=== PATIENT | male | born 1965 | race Caucasian/White ===

== ENCOUNTER 2018-08-18 07:48 | Inpatient (IN) | payer OTHER ==
[2018-08-18] MEDS ORDERED: Sodium Chloride 0.9% 1,000 ML IV ONE ×3 (08:07→11:54)
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
--- NOTE | 2018-08-18 09:27 | Diagnostic Imaging Report ---
Head CT without intravenous contrast Indication: Episode of slurred speech Comparison: None Technique: Axial images were obtained from the vertex to the skull base without IV contrast. Coronal reconstructions were made. Total DLP: 611, CTDI35.3 FINDINGS: Images of the brain obtained without contrast demonstrate no acute hemorrhage. No mass lesions identified. The ventricles and basal cisterns are patent. The nina-white matter differentiation is preserved. There is no mass effect or midline shift. No skull fractures identified. No soft tissue swelling. The paranasal sinuses are clear. IMPRESSION: No acute intracranial abnormality.
[2018-08-18 09:42] LABS: % BASOPHILS 0.4 % (0.0-2.0); % MONOCYTES 9.5 % (2.0-10.0); % NEUTROPHILS 76.1 % (40.0-80.0); BASOPHILE ABSOLUTE 0.1 Th/cumm (0-0.2); EOSINOPHILE ABSOLUTE 0.1 Th/cmm (0.1-0.4); HEMATOCRIT 42.1 % (41.0-60); HEMOGLOBIN 14.3 gm/dL (12-16); LYMPHOCYTE ABSOLUTE 1.7 Th/cmm (1.5-3.0); MEAN CELL VOLUME 92.6 fl (80-99); MEAN CORPUSCULAR HEMOGLOBIN 31.5 pg (26.0-30.0); MONOCYTE ABSOLUTE 1.3 Th/cmm (0.3-1.0); NEUTROPHILE ABSOLUTE 10.1 Th/cmm (1.8-8.0); PLATELET COUNT 344 Th/cmm (150-400); RED BLOOD COUNT 4.55 Mil/cmm (4.30-5.70); RED CELL DISTRIBUTION WIDTH 12.4 % (11.5-20.0); WHITE BLOOD COUNT 13.3 Th/cmm (4.8-10.8)
[2018-08-18 09:52] LABS: ANION GAP 22.8 (7.0-16.0); CALCIUM SERUM 9.8 mg/dL (8.6-10.3); CARBON DIOXIDE 19.9 mEq/L (21.0-31.0); GFR AFRICAN-AMERICAN 8.2 ml/min (>90); GFR NON AFRICAN-AMERICAN 6.8 ml/min; MAGNESIUM 2.5 mg/dL (1.9-2.7); POTASSIUM SERUM 4.7 mEq/L (3.5-5.1)
[2018-08-18 10:01] LABS: CREATININE - SERUM 8.7 mg/dL (0.7-1.3)
[2018-08-18 10:42] LABS: URINE SOURCE RANDOM
--- NOTE | 2018-08-18 10:51 | Diagnostic Imaging Report ---
CHEST X-RAY: AP view INDICATION: Cerebrovascular accident COMPARISON: None FINDINGS: There is no focal consolidation or pleural effusions The heart is normal in size. The osseous structures demonstrate no acute abnormalities. IMPRESSION: No focal airspace consolidation identified.
[2018-08-18 11:00] LABS: URINE BILIRUBIN NEGATIVE (NEGATIVE); URINE BLOOD SMALL (NEGATIVE); URINE GLUCOSE (UA) NEGATIVE (NEGATIVE); URINE KETONE NEGATIVE (NEGATIVE); URINE LEUKOCYTE ESTERASE NEGATIVE (NEGATIVE); URINE MICROSCOPIC INDICATED? YES; URINE NITRATE NEGATIVE (NEGATIVE); URINE PH 5.5 (4.6 - 8.0); URINE PROTEIN 30 mg/dL (NEGATIVE); URINE UROBILINOGEN 0.2 E.U./dL (0.2 - 1.0)
[2018-08-18 11:13] LABS: URINE CLARITY SLIGHTLY HAZY (CLEAR); URINE COLOR YELLOW
[2018-08-18 11:27] LABS: URINE BACTERIA FEW /hpf (NONE SEEN); URINE COARSE GRANULAR CAST 0-2 /lpf (NONE SEEN); URINE EPITHELIAL CELLS FEW /lpf (FEW)
[2018-08-18 11:28] LABS: URINE AMORPHOUS SEDIMENT FEW URATES (NONE SEEN); URINE SPERM FEW /hpf (NONE SEEN)
[2018-08-18] MEDS ORDERED: Morphine Sulfate 4 mg/mL 1mL Syr IVP STA (12:04)
[2018-08-18] MEDS ORDERED: Morphine Sulfate 4 mg/mL 1mL Syr ONE (12:07)
--- NOTE | 2018-08-18 12:34 | Diagnostic Imaging Report ---
CT abdomen and pelvis without intravenous contrast Indication: Acute renal failure Comparison: None, Technique: Axial images were obtained from the lung bases to the bilateral proximal femurs without IV contrast. Coronal reconstructions were made. total DLP: 476, CTDI10.3 FINDINGS: Hypoventilatory and atelectatic changes of the lung bases are noted. Assessment of the solid organs is limited due to lack of IV contrast. No evidence of focal hepatic, splenic, or pancreatic lesions. No focal adrenal lesions. No evidence of hydronephrosis or focal renal lesions. Distended urinary bladder is noted. Diverticulosis is noted. Moderate stool is seen throughout the colon. Appendix is not well-visualized. Fluid-filled small bowel are seen with areas of mild small bowel wall thickening along the right lower quadrant minimal haziness of the regional fat planes in this region. No free fluid or free air. There is a small fat-containing right inguinal hernia. Mild atherosclerosis is noted. Degenerative changes of the spine are noted. There is a large posterior disc osteophyte complex at L5/S1 measuring 7 mm causing at least moderate spinal canal and moderate to severe bilateral neural foraminal narrowing. Vacuum phenomena is also noted at L4/L5. IMPRESSION: No evidence of hydronephrosis or renal stones. Distended urinary bladder. Suggestion of mild bowel wall thickening and minimal haziness involving the right lower quadrant fat planes probably due to underlying infectious inflammatory process/enteritis. Appendix was not clearly visualized. Please correlate clinically. Diverticulosis without diverticulitis Moderate stool. Advanced degenerative changes of the lower lumbar spine with large disc osteophyte complex at L5/S1 measuring 7 mm. Mild atherosclerosis. Small fat-containing right inguinal hernia.
[2018-08-18] MEDS: Sodium Chloride 0.9% 1,000 ML IV SCH ×2 (13:30→20:18)
[2018-08-18] MEDS: cefTRIAXone 1 GM in Sodium Chloride 0.9% 50 ML IV SCH (14:30)
--- NOTE | 2018-08-18 16:29 | Consultation ---
Consult Note - Consult Note Service Date: 08/18/18 Referring Physician: Jovon Pierce Consult Note: PHYSICIAN Consultation Note: Date of Admission: 08/18/18 Purpose of Consultation: Chief Complaint: Patient LAURENT KNIGHT was admitted to location Intensive Care Unit with ACUTE RENAL FAILURE. History of Present Illness: 52 y/m with history of HTN developed nausea, vomiting associated with dizziness , for last 2 days. He stated that he had not urinated well for last 2 days. He vomited 4-52 days ago and twice yesterday. He stated that dizziness worse when he stands: sees black spots and has sensation of impending syncope. This morning patient had developed slurred speech for 2 hours and it had improved. Left arm felt tingling and numb for about one hour this morning. CT scan of head was non-contributory. On initial evaluation, his temperature was 97.6F and WBC Count was 13,300. Blood pressure yesterday was 170/70 and 113/40 this morning. His creatine was 8.7. CXR was neg for any active disease. Urinalysis showed mild hematuria and bacteriuria,. ID consult was called for leukocytosis. He stated that he was in sun working for few hours and felt weak. had nausea and vomiting on last three days ago. he went back and took some rest. His condition got worse and ultimately stopped urinating with worsening of the symptoms. He had similar episode in the past. Past Medical History: renal failure and gets dehydrated: occurred 7-8 years ago. Allergies Allergy/AdvReac Type Severity Reaction Status Date / Time No Known Allergies Allergy Verified 08/18/18 07:56 Vital Signs Temp 97.7 F 08/18/18 13:06 Pulse 88 08/18/18 13:06 Resp 20 08/18/18 13:06 BP 96/56 08/18/18 13:06 Pulse Ox 97 08/18/18 13:06 Intake & Output 08/17/18 08/18/18 08/18/18 18:59 06:59 18:59 Intake Total 6000 Output Total 200 Balance 5800 Weight (lbs) 78.018 kg Intake: Intake, IV Amount 6000 Output: Urine 200 Other: Weight Source Patient stated Laboratory Results - last 24 hr 08/18/18 08/18/18 08/18/18 08:45 08:45 08:45 WBC 13.3 H RBC 4.55 Hgb 14.3 Hct 42.1 MCV 92.6 MCH 31.5 H MCHC Differential 34.0 RDW 12.4 Plt Count 344 MPV 7.8 Neutrophils % 76.1 Lymphocytes % 13.0 L Monocytes % 9.5 Eosinophils % 1.0 Basophils % 0.4 Sodium 133 L Potassium 4.7 Chloride 95 L Carbon Dioxide 19.9 L Anion Gap 22.8 H BUN 71 H Creatinine 8.7 H* Est GFR ( Amer) 8.2 Est GFR (Non-Af Amer) 6.8 BUN/Creatinine Ratio 8.2 Glucose 89 Calcium 9.8 Magnesium 2.5 Troponin I 0.01 Urine Source Urine Color Urine Clarity Urine pH Ur Specific [place] Urine Protein Urine Glucose (UA) Urine Ketones Urine Blood Urine Nitrate Urine Bilirubin Urine Urobilinogen Ur Leukocyte Esterase Urine RBC Urine WBC Ur Epithelial Cells Amorphous Sediment Urine Bacteria Coarse Granular Casts Urine Sperm 08/18/18 08/18/18 09:01 10:22 WBC RBC Hgb Hct MCV MCH MCHC Differential RDW Plt Count MPV Neutrophils % Lymphocytes % Monocytes % Eosinophils % Basophils % Sodium Potassium Chloride Carbon Dioxide Anion Gap BUN Creatinine Est GFR ( Amer) Est GFR (Non-Af Amer) BUN/Creatinine Ratio Glucose Calcium Magnesium 2.6 Troponin I Urine Source RANDOM Urine Color YELLOW Urine Clarity SLIGHTLY HAZY Urine pH 5.5 Ur Specific [place] 1.015 Urine Protein 30 H Urine Glucose (UA) NEGATIVE Urine Ketones NEGATIVE Urine Blood SMALL H Urine Nitrate NEGATIVE Urine Bilirubin NEGATIVE Urine Urobilinogen 0.2 Ur Leukocyte Esterase NEGATIVE Urine RBC 2-5 H Urine WBC 2-5 Ur Epithelial Cells FEW Amorphous Sediment FEW URATES Urine Bacteria FEW Coarse Granular Casts 0-2 H Urine Sperm FEW Home Medication Medication Instructions Recorded Type Lisinopril 20 mg PO BID 08/18/18 History Metoprolol Succinate [Toprol Xl] 50 mg PO DAILY 08/18/18 History Current Medications Generic Name Dose Route Start Last Admin Trade Name Freq PRN Reason Stop Dose Admin Ceftriaxone Sodium 1 gm/ 50 mls @ 100 mls/hr 08/18/18 14:00 Sodium Chloride IV 10/17/18 13:59 Q24HR PUNEET Sodium Chloride 1,000 mls @ 150 mls/hr 08/18/18 13:15 Nacl 0.9% IV 10/17/18 13:14 .Q6H40M PUNEET Review of Systems: A 12 point ROS was reviewed with the pertinent positive and negatives noted in the HPI. Social History Smoking Status Never smoker Drug Use No Alcohol Use No Family Medical History Family Medical History Mother Age 83 Ethnicity Non- Living Status Still Living Hx Family Hypertension Yes Physical Exam: General: Comfortable, not in any acute distress. lean and thin male. HEENT: HEAD: NC NT. ORAL CAVUITY: Moist, pink tongue, pupil PERRLA, EOMI. Neck: Supple, no JVD, no carotid bruit. Cardio: S1 and S2 WNL. pansystolic murmur 9 intense on the apez, PMI, at 5th IC space, medial to midclavicular line), no gallop. Respiratory: Vesicuklar breath sounds, no crackles, no wheezing. Abdominal: Soft, NT, ND BS present. no hepatomegaly. Genital/Urinary: deferred Extremities: NCCE Neurological: AAOx3. Assessment: 1. Leukocytosis, likely reactive. 2/2 CARLITOS, cannot rule out sepsis. 2. UTI, mild. 3. CARLITOS. 4. HTN. 5. Systolic murmur Plan: Will continue rocephin. Follow up sepsis w/u. Hold lisinopril. 2 D Echo. IVF support. thank you Dr Pierce for invovling me in taking care of this patient. Scottie, Tate Rocha M.D. [id number]
[2018-08-18 21:23] LABS: URINE SOURCE MIDSTREAM
[2018-08-18 21:28] LABS: URINE BILIRUBIN NEGATIVE (NEGATIVE); URINE BLOOD SMALL (NEGATIVE); URINE GLUCOSE (UA) NEGATIVE (NEGATIVE); URINE KETONE NEGATIVE (NEGATIVE); URINE LEUKOCYTE ESTERASE NEGATIVE (NEGATIVE); URINE MICROSCOPIC INDICATED? YES; URINE NITRATE NEGATIVE (NEGATIVE); URINE PH 5.5 (4.6 - 8.0); URINE PROTEIN TRACE mg/dL (NEGATIVE); URINE UROBILINOGEN 0.2 E.U./dL (0.2 - 1.0)
[2018-08-18 21:31] LABS: URINE CLARITY CLEAR (CLEAR); URINE COLOR YELLOW
[2018-08-18 21:34] LABS: URINE RBC NONE SEEN /hpf (0-5)
[2018-08-18 21:35] LABS: URINE BACTERIA NONE SEEN /hpf (NONE SEEN); URINE EPITHELIAL CELLS NONE SEEN /lpf (FEW); URINE WBC NONE SEEN /hpf (0-5)
--- NOTE | 2018-08-19 02:37 | History & Physical ---
ADMIT DATE: 08/18/2018 CHIEF COMPLAINT: Dizziness, nausea and vomiting. HISTORY OF PRESENT ILLNESS: This is a 52-year-old male with underlying history of hypertension, who was evaluated in the Emergency Room for dizziness, nausea, and vomiting for past 2 days. The patient stated that 2 days ago, he was working in the back yard. He is a senior technical project manager. The patient stated that he experienced a severe heat. He kept drinking water, but he felt very nauseous and fatigued, started having vomiting. The patient stated that these symptoms persistently got worse and he started feeling very dizzy, so the patient was brought into the Emergency Room. The patient ____ diagnosed with severe dehydration and acute renal failure with a creatinine of 8.7. The patient told that he had similar issues several years ago and was treated with IV fluids and did not require hemodialysis. The patient stated he also noticed to have a decreased in and out for the past 2 days. He denies any abdominal pain, no headache, no chest pain, no shortness of breath, no fever, no chills or any other complaint reported. PAST MEDICAL HISTORY: Hypertension. PAST SURGICAL HISTORY: None. FAMILY HISTORY: Denies. SOCIAL HISTORY: Denies any alcohol, tobacco, or street drug use. CURRENT MEDICATIONS: Medication list is reviewed. ALLERGIES: Reviewed. REVIEW OF SYSTEMS: As per HPI, a 12-point system is negative. PHYSICAL EXAMINATION: VITAL SIGNS: Temperature 98.2, pulse 65, respiration 18, blood pressure 95/49 and oxygen saturation is 93% on room air. HEENT: Unremarkable. HEART: S1, S2 normal. ABDOMEN: Soft ____. ASSESSMENT: 1. Severe dehydration. 2. Acute renal failure. 3. Leukocytosis, most likely reactive. 4. Chronic low back pain. 5. Hypotension. PLAN: The patient is admitted to ICU. The patient was given aggressive resuscitations. Empiric antibiotics per ID. Nephrology consulted. Tramadol as needed for pain. Home medication reconciled. Currently, the BP meds on hold due to hypotension. Discussed with the patient regarding his condition, plan of care ____ for nausea, vomiting. Follow up labs in the morning. JOB# [id number]
[2018-08-19] MEDS: Sodium Chloride 0.9% 1,000 ML IV SCH ×2 (03:05→18:18)
[2018-08-19 05:52] LABS: % BASOPHILS 0.4 % (0.0-2.0); % EOSINOPHILS 1.5 % (0.0-5.0); % LYMPHOCYTES 13.6 % (20.0-50.0); % MONOCYTES 9.8 % (2.0-10.0); % NEUTROPHILS 74.7 % (40.0-80.0); EOSINOPHILE ABSOLUTE 0.1 Th/cmm (0.1-0.4); HEMATOCRIT 33.6 % (41.0-60); HEMOGLOBIN 11.4 gm/dL (12-16); LYMPHOCYTE ABSOLUTE 1.2 Th/cmm (1.5-3.0); MEAN CELL VOLUME 92.7 fl (80-99); MEAN CORPUSCULAR HEMOGLOBIN 31.5 pg (26.0-30.0); MONOCYTE ABSOLUTE 0.9 Th/cmm (0.3-1.0); NEUTROPHILE ABSOLUTE 6.8 Th/cmm (1.8-8.0); PLATELET COUNT 260 Th/cmm (150-400); RED BLOOD COUNT 3.62 Mil/cmm (4.30-5.70); RED CELL DISTRIBUTION WIDTH 12.3 % (11.5-20.0)
[2018-08-19 06:50] LABS: ANION GAP 7.5 (7.0-16.0); CALCIUM SERUM 8.7 mg/dL (8.6-10.3); CARBON DIOXIDE 25.7 mEq/L (21.0-31.0); CREATININE - SERUM 3.1 mg/dL (0.7-1.3); GFR AFRICAN-AMERICAN 27.1 ml/min (>90); GFR NON AFRICAN-AMERICAN 22.4 ml/min
[2018-08-19 06:53] LABS: POTASSIUM SERUM 6.2 mEq/L (3.5-5.1)
--- NOTE | 2018-08-19 08:57 | Diagnostic Imaging Report ---
Portable chest x-ray History: Cough Allowing for portable technique the heart size is normal. No focal pulmonary parenchymal processes. No hilar or mediastinal abnormalities. Impression: No acute abnormalities.
--- NOTE | 2018-08-19 09:01 | Diagnostic Imaging Report ---
Renal ultrasound HISTORY: Abnormal renal function tests The right kidney is normal in size (9.5 x 5.0 x 5.2 cm). Normal cortical contour and echogenicity. No focal lesions. No hydronephrosis. The left kidney is normal in size (11.0 x 5.5 x 4.8 cm). No focal lesions. No hydronephrosis. No intraluminal abnormality seen within the urinary bladder. Post void residual equals 61.8 mL. IMPRESSION: 1. Negative examination the kidneys 2. Post void urine residual within the urinary bladder equals 61.8 mL.
[2018-08-19] MEDS ORDERED: Dextrose 50% 50 mL Abboject IVP ONE (09:02)
[2018-08-19] MEDS ORDERED: INSULIN HUMAN REGULAR 100 UNITS/ML UNIT IVP ONE (09:02)
[2018-08-19] MEDS: Albuterol Nebulizer 2.5mg/3mL HHN SCH ×5 (09:48→14:00)
[2018-08-19] MEDS: Calcium Gluconate 1 GM in Sodium Chloride 0.9% 100 ML IV SCH ×2 (10:02→11:55)
[2018-08-19 13:29] LABS: ANION GAP 11.9 (7.0-16.0); CALCIUM SERUM 9.2 mg/dL (8.6-10.3); CARBON DIOXIDE 21.7 mEq/L (21.0-31.0); CREATININE - SERUM 2.8 mg/dL (0.7-1.3); GFR AFRICAN-AMERICAN 30.5 ml/min (>90); GFR NON AFRICAN-AMERICAN 25.2 ml/min; POTASSIUM SERUM 5.6 mEq/L (3.5-5.1)
[2018-08-19 13:30] LABS: MAGNESIUM 1.9 mg/dL (1.9-2.7); PHOSPHOROUS 2.7 mg/dL (2.5-5.0)
[2018-08-19] MEDS ORDERED: Probiotic Screen MC PRN (13:41)
[2018-08-19] MEDS: cefTRIAXone 1 GM in Sodium Chloride 0.9% 50 ML IV SCH (14:12)
--- NOTE | 2018-08-19 15:25 | History & Physical ---
ADMIT DATE: RENAL AND CRITICAL CARE CONSULT LOCATION: [facility], ICU bed #8. Thank you very much, Dr. Pierce, for allowing me to participate in the management of this patient of yours. IDENTIFICATION: This is a 52-year-old male patient who is a known case of well-controlled hypertension, on beta robby and JOHN inhibitor. The patient was working in the backyard for about 2-3 hours in very hot weather. The patient started feeling dizzy, nauseated. He vomited. The patient thought he may have got dehydration since a similar thing happened back in [place] where he was. The patient came to the Emergency Room, was found to have acute kidney injury. The patient stated that he will get better with hydration since this has happened before and his kidney got better with just IV hydration without dialysis. The patient was started on dialysis. The patient has persistent high potassium. Renal consultation has been requested. The patient is conscious and alert at this time. He feels much better. He has no vomiting or diarrhea. Now, the dizziness has subsided. The patient is tolerating food well, although he does not like the food. The patient denies any hematuria, anuria, or chest pain. No prior history of diabetes mellitus, kidney stone as mentioned above, history of hypertension and acute renal failure secondary to dehydration. No history of lupus. SOCIAL HISTORY: No history of alcoholism, smoking or drug use. The patient lives [place]. PAST MEDICAL HISTORY: Hypertension. PHYSICAL EXAMINATION: VITAL SIGNS: Temperature 98.6, pulse 79, respirations 23, blood pressure 123/69. Yesterday's intake 9387, urine output 3250. HEENT: Normocephalic, atraumatic. Eyes, sclerae is nonicteric. Conjunctivae are pink. Pupils are reactive. NECK: Thyroid is nontender, not enlarged. Jugular venous pressure not distended. LUNGS: Good air entry. No rales or rhonchi. HEART: Regular, no rub or gallop. ABDOMEN: Soft, not distended. Bowel sounds present. No organomegaly or bruit. EXTREMITIES: No edema of the legs. No calf tenderness. NEUROLOGICAL: Conscious, alert. No focal deficit. LABORATORY DATA: WBC 13.3, repeat 9.0, hemoglobin 14.3, repeat 11.4. Sodium 133, potassium 4.7, repeat potassium 6.2, chloride 95, CO2 19, BUN 71, creatinine 8.7. Repeat BUN 49, creatinine 3.1, calcium, phosphorus normal. Urinalysis: Small blood, no nitrites, no wbc's, no bacteria, no cast. ASSESSMENT: 1. Acute kidney injury. 2. Volume depletion. 3. History of hypertension. 4. Hyperkalemia, most probably secondary to combination of acute kidney injury and lisinopril. 5. Leukocytosis. PLAN: Continue IV hydration. Hyperkalemia will be treated medically with calcium gluconate, D50, insulin, Atrovent breathing treatment. Repeat a BMP. I am expecting this patient to have a good recovery of his acute kidney injury. Lab will be done again in the morning if potassium is normal and the repeat lab. The patient's renal status seems to be in stable condition for the regular floor. I will follow this patient with you. JOB# [id number]
--- NOTE | 2018-08-19 17:12 | Infectious Disease Prog Note ---
Infectious Disease Subjective - Review of Systems Service Date: 08/19/18 Subjective: There is no new change, no fever, Feeling better. Infectious Disease Objective - Results Result Diagrams: 08/19/18 04:50 08/19/18 12:35 Recent Labs: Laboratory Last Values WBC 9.0 Th/cmm (4.8-10.8) 08/19/18 04:50 RBC 3.62 Mil/cmm (4.30-5.70) L 08/19/18 04:50 Hgb 11.4 gm/dL (12-16) L 08/19/18 04:50 Hct 33.6 % (41.0-60) L D 08/19/18 04:50 MCV 92.7 fl (80-99) 08/19/18 04:50 MCH 31.5 pg (26.0-30.0) H 08/19/18 04:50 MCHC Differential 34.0 pg (28.0-36.0) 08/19/18 04:50 RDW 12.3 % (11.5-20.0) 08/19/18 04:50 Plt Count 260 Th/cmm (150-400) D 08/19/18 04:50 MPV 7.4 fl 08/19/18 04:50 Neutrophils % 74.7 % (40.0-80.0) 08/19/18 04:50 Lymphocytes % 13.6 % (20.0-50.0) L 08/19/18 04:50 Monocytes % 9.8 % (2.0-10.0) 08/19/18 04:50 Eosinophils % 1.5 % (0.0-5.0) 08/19/18 04:50 Basophils % 0.4 % (0.0-2.0) 08/19/18 04:50 Sodium 139 mEq/L (136-145) 08/19/18 12:35 Potassium 5.6 mEq/L (3.5-5.1) H 08/19/18 12:35 Chloride 111 mEq/L (98-107) H 08/19/18 12:35 Carbon Dioxide 21.7 mEq/L (21.0-31.0) 08/19/18 12:35 Anion Gap 11.9 (7.0-16.0) 08/19/18 12:35 BUN 39 mg/dL (7-25) H 08/19/18 12:35 Creatinine 2.8 mg/dL (0.7-1.3) H 08/19/18 12:35 Est GFR ( Amer) 30.5 ml/min (>90) 08/19/18 12:35 Est GFR (Non-Af Amer) 25.2 ml/min 08/19/18 12:35 BUN/Creatinine Ratio 13.9 08/19/18 12:35 Glucose 102 mg/dL (70-105) 08/19/18 12:35 POC Glucose 72 MG/DL (70 - 105) 08/19/18 11:20 Whole Bld Lactic Acid 0.71 mmol/L (0.60-1.99) 08/18/18 17:05 Calcium 9.2 mg/dL (8.6-10.3) 08/19/18 12:35 Phosphorus 2.7 mg/dL (2.5-5.0) 08/19/18 12:35 Magnesium 1.9 mg/dL (1.9-2.7) 08/19/18 12:35 Troponin I 0.01 ng/mL (0.01-0.05) 08/18/18 08:45 TSH 0.13 uIU/ml (0.34-5.60) L 08/19/18 12:35 Urine Source MIDSTREAM 08/18/18 21:15 Urine Color YELLOW 08/18/18 21:15 Urine Clarity CLEAR (CLEAR) 08/18/18 21:15 Urine pH 5.5 (4.6 - 8.0) 08/18/18 21:15 Ur Specific [place] 1.015 (1.005-1.030) 08/18/18 21:15 Urine Protein TRACE mg/dL (NEGATIVE) 08/18/18 21:15 Urine Glucose (UA) NEGATIVE mg/dL (NEGATIVE) 08/18/18 21:15 Urine Ketones NEGATIVE mg/dL (NEGATIVE) 08/18/18 21:15 Urine Blood SMALL (NEGATIVE) H 08/18/18 21:15 Urine Nitrate NEGATIVE (NEGATIVE) 08/18/18 21:15 Urine Bilirubin NEGATIVE (NEGATIVE) 08/18/18 21:15 Urine Urobilinogen 0.2 E.U./dL (0.2 - 1.0) 08/18/18 21:15 Ur Leukocyte Esterase NEGATIVE (NEGATIVE) 08/18/18 21:15 Urine RBC NONE SEEN /hpf (0-5) 08/18/18 21:15 Urine WBC NONE SEEN /hpf (0-5) 08/18/18 21:15 Ur Epithelial Cells NONE SEEN /lpf (FEW) 08/18/18 21:15 Uric Acid Crystals FEW /hpf (NONE SEEN) 08/18/18 21:15 Amorphous Sediment FEW URATES (NONE SEEN) 08/18/18 10:22 Urine Bacteria NONE SEEN /hpf (NONE SEEN) 08/18/18 21:15 Coarse Granular Casts 0-2 /lpf (NONE SEEN) H 08/18/18 10:22 Urine Sperm FEW /hpf (NONE SEEN) 08/18/18 10:22 Ur Random Sodium 100 mmol/L 08/19/18 10:15 Ur Random Potassium 12.0 mmol/L 08/19/18 10:15 - Physical Exam Vitals and I&O: Vital Signs Temp 97.2 F 08/19/18 12:00 Pulse 79 08/19/18 14:00 Resp 23 08/19/18 14:00 BP 123/69 08/19/18 14:00 Pulse Ox 100 08/19/18 14:00 Intake & Output 08/18/18 08/19/18 08/19/18 18:59 06:59 18:59 Intake Total 6550 2837.5 110 Output Total 1250 2000 Balance 5300 837.5 110 Weight (lbs) 78.018 kg 78.018 kg Intake: Intake, IV Amount 6050 2437.5 110 Calcium Gluconate 1 gm In 110 Sodium Chloride 0.9% 100 ml @ 200 mls/hr IV Q2HR [facility] Rx#:[id number] Sodium Chloride 0.9% 1, 2437.5 000 ml @ 150 mls/hr IV . Q6H40M [facility] Rx#:[id number] cefTRIAXone 1 gm In 50 Sodium Chloride 0.9% 50 ml @ 100 mls/hr IV Q24HR [facility] Rx#:[id number] Oral 500 400 Output: Urine 1250 2000 Other: # Bowel Movements 0 Weight Source Patient stated Patient stated Active Medications: Current Medications Ceftriaxone Sodium 1 gm/ (Sodium Chloride) 50 mls @ 100 mls/hr IV Q24HR [facility] Stop: 10/17/18 13:59 Last Admin: 08/19/18 14:12 Dose: 100 mls/hr Sodium Chloride (Nacl 0.9%) 1,000 mls @ 150 mls/hr IV .Q6H40M [facility] Stop: 10/17/18 13:14 Last Infusion: 08/19/18 06:00 Dose: 150 mls/hr Lactobacillus Rhamnosus (Culturelle 15b) 1 each PO DAILY [facility] Stop: 10/19/18 08:59 Miscellaneous (Probiotic Screen) 1 ea MC PRN PRN PRN Reason: PROTOCOL Stop: 10/18/18 13:40 Tramadol HCl (Ultram) 50 mg PO Q6HR PRN PRN Reason: MODERATE PAIN Stop: 10/17/18 18:16 Last Admin: 08/18/18 19:59 Dose: 50 mg Zolpidem Tartrate (Ambien) 5 mg PO HS PRN PRN Reason: Insomnia Stop: 10/17/18 23:17 Last Admin: 08/18/18 23:31 Dose: 5 mg General: no acute distress, well developed, well nourished HEENT: atraumatic, normocephalic, PERRLA, EOMI Neck: supple, no thyromegaly Cardiovascular: S1S2, regular Lungs: clear to auscultation bilaterally, clear to percussion Abdomen: soft, no tender, no distended Extremities: no cyanosis, no clubbing Neurological: awake, alert, oriented Skin: intact Infectious Disease Assmt/Plan - Problem List Patient Problems: All Active Problems SLURRED SPEECH WITH DIZZINESS (Acute) - Assessment Assessment: 1. Leukocytosis, likely reactive. 2/2 CARLITOS, cannot rule out sepsis. 2. UTI, mild. 3. CARLITOS. 4. HTN. 5. Systolic murmur - Plan Plan: Continue the same treatment.
[2018-08-19 19:54] VITALS: BP 125/68
--- NOTE | 2018-08-19 22:22 | General Progress Note ---
Subjective - Review of Systems Service Date: 08/19/18 Subjective: Patient seen and examined feels better denied any complaints Objective - Results Result Diagrams: 08/19/18 04:50 08/19/18 18:00 Recent Labs: Laboratory Last Values WBC 9.0 Th/cmm (4.8-10.8) 08/19/18 04:50 RBC 3.62 Mil/cmm (4.30-5.70) L 08/19/18 04:50 Hgb 11.4 gm/dL (12-16) L 08/19/18 04:50 Hct 33.6 % (41.0-60) L D 08/19/18 04:50 MCV 92.7 fl (80-99) 08/19/18 04:50 MCH 31.5 pg (26.0-30.0) H 08/19/18 04:50 MCHC Differential 34.0 pg (28.0-36.0) 08/19/18 04:50 RDW 12.3 % (11.5-20.0) 08/19/18 04:50 Plt Count 260 Th/cmm (150-400) D 08/19/18 04:50 MPV 7.4 fl 08/19/18 04:50 Neutrophils % 74.7 % (40.0-80.0) 08/19/18 04:50 Lymphocytes % 13.6 % (20.0-50.0) L 08/19/18 04:50 Monocytes % 9.8 % (2.0-10.0) 08/19/18 04:50 Eosinophils % 1.5 % (0.0-5.0) 08/19/18 04:50 Basophils % 0.4 % (0.0-2.0) 08/19/18 04:50 Sodium 139 mEq/L (136-145) 08/19/18 12:35 Potassium 4.9 mEq/L (3.5-5.1) 08/19/18 18:00 Chloride 111 mEq/L (98-107) H 08/19/18 12:35 Carbon Dioxide 21.7 mEq/L (21.0-31.0) 08/19/18 12:35 Anion Gap 11.9 (7.0-16.0) 08/19/18 12:35 BUN 39 mg/dL (7-25) H 08/19/18 12:35 Creatinine 2.8 mg/dL (0.7-1.3) H 08/19/18 12:35 Est GFR ( Amer) 30.5 ml/min (>90) 08/19/18 12:35 Est GFR (Non-Af Amer) 25.2 ml/min 08/19/18 12:35 BUN/Creatinine Ratio 13.9 08/19/18 12:35 Glucose 102 mg/dL (70-105) 08/19/18 12:35 POC Glucose 72 MG/DL (70 - 105) 08/19/18 11:20 Whole Bld Lactic Acid 0.71 mmol/L (0.60-1.99) 08/18/18 17:05 Calcium 9.2 mg/dL (8.6-10.3) 08/19/18 12:35 Phosphorus 2.7 mg/dL (2.5-5.0) 08/19/18 12:35 Magnesium 1.9 mg/dL (1.9-2.7) 08/19/18 12:35 Troponin I 0.01 ng/mL (0.01-0.05) 08/18/18 08:45 TSH 0.13 uIU/ml (0.34-5.60) L 08/19/18 12:35 Urine Source MIDSTREAM 08/18/18 21:15 Urine Color YELLOW 08/18/18 21:15 Urine Clarity CLEAR (CLEAR) 08/18/18 21:15 Urine pH 5.5 (4.6 - 8.0) 08/18/18 21:15 Ur Specific [place] 1.015 (1.005-1.030) 08/18/18 21:15 Urine Protein TRACE mg/dL (NEGATIVE) 08/18/18 21:15 Urine Glucose (UA) NEGATIVE mg/dL (NEGATIVE) 08/18/18 21:15 Urine Ketones NEGATIVE mg/dL (NEGATIVE) 08/18/18 21:15 Urine Blood SMALL (NEGATIVE) H 08/18/18 21:15 Urine Nitrate NEGATIVE (NEGATIVE) 08/18/18 21:15 Urine Bilirubin NEGATIVE (NEGATIVE) 08/18/18 21:15 Urine Urobilinogen 0.2 E.U./dL (0.2 - 1.0) 08/18/18 21:15 Ur Leukocyte Esterase NEGATIVE (NEGATIVE) 08/18/18 21:15 Urine RBC NONE SEEN /hpf (0-5) 08/18/18 21:15 Urine WBC NONE SEEN /hpf (0-5) 08/18/18 21:15 Ur Epithelial Cells NONE SEEN /lpf (FEW) 08/18/18 21:15 Uric Acid Crystals FEW /hpf (NONE SEEN) 08/18/18 21:15 Amorphous Sediment FEW URATES (NONE SEEN) 08/18/18 10:22 Urine Bacteria NONE SEEN /hpf (NONE SEEN) 08/18/18 21:15 Coarse Granular Casts 0-2 /lpf (NONE SEEN) H 08/18/18 10:22 Urine Sperm FEW /hpf (NONE SEEN) 08/18/18 10:22 Ur Random Sodium 100 mmol/L 08/19/18 10:15 Ur Random Potassium 12.0 mmol/L 08/19/18 10:15 - Physical Exam Vitals and I&O: Vital Signs Temp 97 F 08/19/18 20:04 Pulse 81 08/19/18 20:04 Resp 20 08/19/18 20:04 BP 125/68 08/19/18 20:04 Pulse Ox 97 08/19/18 20:04 Intake & Output 08/19/18 08/19/18 08/20/18 06:59 18:59 06:59 Intake Total 2837.5 2252.5 Output Total 19990 Balance 837.5 -97.5 Weight (lbs) 78.018 kg 77.564 kg Intake: Intake, IV Amount 2437.5 722.5 Calcium Gluconate 1 gm In 110 Sodium Chloride 0.9% 100 ml @ 200 mls/hr IV Q2HR [facility] Rx#:[id number] Sodium Chloride 0.9% 1, 2437.5 562.5 000 ml @ 150 mls/hr IV . Q6H40M [facility] Rx#:[id number] cefTRIAXone 1 gm In 50 Sodium Chloride 0.9% 50 ml @ 100 mls/hr IV Q24HR [facility] Rx#:[id number] Oral 400 1530 Output: Urine 1999 2350 Other: # Bowel Movements 0 1 Weight Source Patient stated Bedscale Active Medications: Current Medications Ceftriaxone Sodium 1 gm/ (Sodium Chloride) 50 mls @ 100 mls/hr IV Q24HR [facility] Stop: 10/17/18 13:59 Last Infusion: 08/19/18 14:40 Dose: Infused Sodium Chloride (Nacl 0.9%) 1,000 mls @ 150 mls/hr IV .Q6H40M [facility] Stop: 10/17/18 13:14 Last Admin: 08/19/18 18:18 Dose: 150 mls/hr Lactobacillus Rhamnosus (Culturelle 15b) 1 each PO DAILY [facility] Stop: 10/19/18 08:59 Miscellaneous (Probiotic Screen) 1 ea [facility] PRN PRN PRN Reason: PROTOCOL Stop: 10/18/18 13:40 Tramadol HCl (Ultram) 50 mg PO Q6HR PRN PRN Reason: MODERATE PAIN Stop: 10/17/18 18:16 Last Admin: 08/18/18 19:59 Dose: 50 mg Zolpidem Tartrate (Ambien) 5 mg PO HS PRN PRN Reason: Insomnia Stop: 10/17/18 23:17 Last Admin: 08/18/18 23:31 Dose: 5 mg Cardiovascular: Regular rate Lungs: Clear to auscultation Assessment/Plan - Problem List Patient Problems: All Active Problems SLURRED SPEECH WITH DIZZINESS (Acute) - Assessment Assessment: Acute kidney injury Hyperkalemia HTN Low back pain - Plan Plan: Hyperkalemia treatment Repeat K better JUDIE transfer High flow IV fluids Nephrology on board Patient was updated on plan of care Plan of care dw nursing staff
[2018-08-20 06:46] LABS: % EOSINOPHILS 1.5 % (0.0-5.0); % LYMPHOCYTES 16.2 % (20.0-50.0); % MONOCYTES 10.2 % (2.0-10.0); % NEUTROPHILS 72.1 % (40.0-80.0); EOSINOPHILE ABSOLUTE 0.1 Th/cmm (0.1-0.4); HEMATOCRIT 32.4 % (41.0-60); HEMOGLOBIN 10.9 gm/dL (12-16); LYMPHOCYTE ABSOLUTE 1.3 Th/cmm (1.5-3.0); MEAN CELL VOLUME 92.4 fl (80-99); MEAN CORPUSCULAR HEMOGLOBIN 31.2 pg (26.0-30.0); MEAN CORPUSCULAR HGB CONC 33.8 pg (28.0-36.0); MONOCYTE ABSOLUTE 0.8 Th/cmm (0.3-1.0); NEUTROPHILE ABSOLUTE 5.7 Th/cmm (1.8-8.0); PLATELET COUNT 241 Th/cmm (150-400); RED CELL DISTRIBUTION WIDTH 12.6 % (11.5-20.0); WHITE BLOOD COUNT 7.9 Th/cmm (4.8-10.8)
[2018-08-20 06:59] LABS: CALCIUM SERUM 8.7 mg/dL (8.6-10.3); CARBON DIOXIDE 19.3 mEq/L (21.0-31.0); CREATININE - SERUM 1.6 mg/dL (0.7-1.3); GFR AFRICAN-AMERICAN 58.2 ml/min (>90); GFR NON AFRICAN-AMERICAN 48.1 ml/min; MAGNESIUM 1.5 mg/dL (1.9-2.7); PHOSPHOROUS 2.5 mg/dL (2.5-5.0); POTASSIUM SERUM 5.3 mEq/L (3.5-5.1)
[2018-08-20 08:05] LABS: T3 FREE 2.9 pg/mL (2.0-4.4); T4 FREE 0.87 ng/dL (0.82-1.77)
[2018-08-20] MEDS ORDERED: Lactobacillus Rhamnosus GG 15 Billion CFU CAP.SPRINK PO SCH (09:00)
[2018-08-20] MEDS: Sodium Chloride 0.9% 1,000 ML IV SCH (09:34)
[2018-08-20] MEDS ORDERED: Sodium Chloride 0.9% 1,000 ML IV SCH (11:45)
[2018-08-20] MEDS: Magnesium Sulfate 2 gm/50 mL Premix Bag IV SCH ×2 (12:10→14:21)
--- NOTE | 2018-08-20 14:17 | Progress Notes ---
DATE: LOCATION: Room #11, bed A, [facility], [place]. SUBJECTIVE: The patient has been transferred out of ICU. The patient is conscious, alert, tolerating food well. The patient is on a renal diet. Good urine output, asymptomatic. OBJECTIVE: VITAL SIGNS: Temperature 97.1, blood pressure 111/70, pulse 83. Yesterday's intake 9387 and output 3250, today 3252 intake with almost 3000 mL of urine output. HEART: Regular. LUNGS: Good air entry. ABDOMEN: Soft. EXTREMITIES: No edema. LABORATORY DATA: Hemoglobin 10.9, WBC 7.9, platelet 241,000. Sodium 138, potassium 5.3, CO2 19.3, BUN 22, creatinine 1.6, magnesium 1.5. ASSESSMENT: 1. Hypomagnesemia. 2. Acute kidney injury, improving. 3. Hyperkalemia. 4. Acidosis. 5. Worsening of anemia. 6. Hypertension. 7. Dehydration, improving. PLAN: 1. We will give magnesium sulfate IV rider. 2. Kayexalate 30 grams one time p.o. 3. Start the patient on sodium bicarbonate p.o. 4. CMP, phosphorus, magnesium in the morning. The patient now states that he wants to go home today; otherwise, he will sign out AMA. Due to this, I have advised the nursing staff to give sodium bicarbonate 1300 mg p.o. now and repeat at 3:00 p.m. and then check a BMP at 5:00 p.m. The patient is refusing Kayexalate. If the patient's potassium and magnesium are within normal limits, then the patient can be discharged home safely. He will be sent home off lisinopril since the patient has hyperkalemia and he is advised to follow up with his primary care physician for further treatment in next 2-3 days. Low-potassium diet also will be advised to the patient. BMP will be done on Wednesday morning on him. JOB# [id number]
[2018-08-20] MEDS: cefTRIAXone 1 GM in Sodium Chloride 0.9% 50 ML IV SCH (16:36)
[2018-08-20 18:12] LABS: MAGNESIUM 2.8 mg/dL (1.9-2.7); POTASSIUM SERUM 4.8 mEq/L (3.5-5.1)
--- NOTE | 2018-08-20 22:43 | General Progress Note ---
Subjective - Review of Systems Service Date: 08/20/18 Subjective: Patient seen and examined feels better denied any complaints Objective - Results Result Diagrams: 08/20/18 05:45 08/20/18 17:45 Recent Labs: Laboratory Last Values WBC 7.9 Th/cmm (4.8-10.8) 08/20/18 05:45 RBC 3.50 Mil/cmm (4.30-5.70) L 08/20/18 05:45 Hgb 10.9 gm/dL (12-16) L 08/20/18 05:45 Hct 32.4 % (41.0-60) L 08/20/18 05:45 MCV 92.4 fl (80-99) 08/20/18 05:45 MCH 31.2 pg (26.0-30.0) H 08/20/18 05:45 MCHC Differential 33.8 pg (28.0-36.0) 08/20/18 05:45 RDW 12.6 % (11.5-20.0) 08/20/18 05:45 Plt Count 241 Th/cmm (150-400) 08/20/18 05:45 MPV 7.7 fl 08/20/18 05:45 Neutrophils % 72.1 % (40.0-80.0) 08/20/18 05:45 Lymphocytes % 16.2 % (20.0-50.0) L 08/20/18 05:45 Monocytes % 10.2 % (2.0-10.0) H 08/20/18 05:45 Eosinophils % 1.5 % (0.0-5.0) 08/20/18 05:45 Basophils % 0.0 % (0.0-2.0) 08/20/18 05:45 Sodium 138 mEq/L (136-145) 08/20/18 05:45 Potassium 4.8 mEq/L (3.5-5.1) 08/20/18 17:45 Chloride 112 mEq/L (98-107) H 08/20/18 05:45 Carbon Dioxide 19.3 mEq/L (21.0-31.0) L 08/20/18 05:45 Anion Gap 12.0 (7.0-16.0) 08/20/18 05:45 BUN 22 mg/dL (7-25) 08/20/18 05:45 Creatinine 1.6 mg/dL (0.7-1.3) H 08/20/18 05:45 Est GFR ( Amer) 58.2 ml/min (>90) 08/20/18 05:45 Est GFR (Non-Af Amer) 48.1 ml/min 08/20/18 05:45 BUN/Creatinine Ratio 13.8 08/20/18 05:45 Glucose 97 mg/dL (70-105) 08/20/18 05:45 POC Glucose 72 MG/DL (70 - 105) 08/19/18 11:20 Whole Bld Lactic Acid 0.71 mmol/L (0.60-1.99) 08/18/18 17:05 Calcium 8.7 mg/dL (8.6-10.3) 08/20/18 05:45 Phosphorus 2.5 mg/dL (2.5-5.0) 08/20/18 05:45 Magnesium 2.8 mg/dL (1.9-2.7) H 08/20/18 17:45 Troponin I 0.01 ng/mL (0.01-0.05) 08/18/18 08:45 Free T4 0.87 ng/dL (0.82-1.77) 08/19/18 12:35 Free T3 2.9 pg/mL (2.0-4.4) 08/19/18 12:35 TSH 0.13 uIU/ml (0.34-5.60) L 08/19/18 12:35 Urine Source MIDSTREAM 08/18/18 21:15 Urine Color YELLOW 08/18/18 21:15 Urine Clarity CLEAR (CLEAR) 08/18/18 21:15 Urine pH 5.5 (4.6 - 8.0) 08/18/18 21:15 Ur Specific [place] 1.015 (1.005-1.030) 08/18/18 21:15 Urine Protein TRACE mg/dL (NEGATIVE) 08/18/18 21:15 Urine Glucose (UA) NEGATIVE mg/dL (NEGATIVE) 08/18/18 21:15 Urine Ketones NEGATIVE mg/dL (NEGATIVE) 08/18/18 21:15 Urine Blood SMALL (NEGATIVE) H 08/18/18 21:15 Urine Nitrate NEGATIVE (NEGATIVE) 08/18/18 21:15 Urine Bilirubin NEGATIVE (NEGATIVE) 08/18/18 21:15 Urine Urobilinogen 0.2 E.U./dL (0.2 - 1.0) 08/18/18 21:15 Ur Leukocyte Esterase NEGATIVE (NEGATIVE) 08/18/18 21:15 Urine RBC NONE SEEN /hpf (0-5) 08/18/18 21:15 Urine WBC NONE SEEN /hpf (0-5) 08/18/18 21:15 Ur Epithelial Cells NONE SEEN /lpf (FEW) 08/18/18 21:15 Uric Acid Crystals FEW /hpf (NONE SEEN) 08/18/18 21:15 Amorphous Sediment FEW URATES (NONE SEEN) 08/18/18 10:22 Urine Bacteria NONE SEEN /hpf (NONE SEEN) 08/18/18 21:15 Coarse Granular Casts 0-2 /lpf (NONE SEEN) H 08/18/18 10:22 Urine Sperm FEW /hpf (NONE SEEN) 08/18/18 10:22 Ur Random Sodium 100 mmol/L 08/19/18 10:15 Ur Random Potassium 12.0 mmol/L 08/19/18 10:15 - Physical Exam Vitals and I&O: Vital Signs Temp 98.5 F 08/20/18 20:00 Pulse 72 08/20/18 20:00 Resp 18 08/20/18 20:00 BP 142/79 08/20/18 20:00 Pulse Ox 97 08/20/18 20:00 Intake & Output 08/20/18 08/20/18 08/21/18 06:59 18:59 06:59 Intake Total 1000 54.583 Output Total 600 Balance 400 54.583 Weight (lbs) 77.564 kg Intake: Intake, IV Amount 1000 54.583 Mag Sulfate 2gm/50mL 54.583 Premix 4 gm In 100 ml @ 25 mls/hr IV 1200 [facility] Rx# :[id number] Sodium Chloride 0.9% 1, 1000 000 ml @ 150 mls/hr IV . Q6H40M [facility] Rx#:[id number] Output: Urine 600 Other: Weight Source Bedscale Cardiovascular: Regular rate Lungs: Clear to auscultation Assessment/Plan - Assessment Assessment: Acute kidney injury improving Hyperkalemia better HTN stable Low back pain - Plan Plan: K better Renal function improving Nephrology cleared patient for home discharge DC home today
--- NOTE | 2018-09-13 20:54 | Discharge Summary ---
DATE OF DISCHARGE: 08/20/2018 FINAL DIAGNOSES: 1. Acute renal failure. 2. Severe dehydration. 3. Severe hyperkalemia. 4. Hypertension. 5. Chronic low back pain. 6. Leukocytosis, most likely reactive. HOSPITAL COURSE: This is a 52-year-old male admitted for evaluation of the severe dehydration, acute renal failure and hyperkalemia. The patient was admitted to ICU, high-flow IV fluid was given. The patient's electrolytes were closely monitored. Vitals were monitored. Nephrology consulted for the patient. CT abdomen and pelvis was negative for any findings. The patient had leukocytosis, seen by ID. No further recommendation was given. The patient's renal function started improving. The patient was cleared for discharge in agreement of specialities for outpatient followup. DISCHARGE CONDITION: Stable. DISCHARGE MEDICATIONS: Please see medication reconciliation. DISCHARGE INSTRUCTION: Followed by patient's primary MD as an outpatient. JOB# [id number]
== END 2018-08-20 20:20 | disposition home or self-care (01) | DRG 640 ==
LOC: ER 07:48 → ICU 12:21 → TELE 12:47 → ICU 12:50 → TELE 08-19 19:00
PROVIDERS: ADMIT Family Medicine; ATTEND Family Medicine
DX: E86.0 Dehydration (principal); N17.0 Acute kidney failure with tubular necrosis; N39.0 Urinary tract infection, site not specified; E87.5 Hyperkalemia; E87.2 Acidosis; I10 Essential (primary) hypertension; R01.1 Cardiac murmur, unspecified; G89.29 Other chronic pain; M54.5 Low back pain; I95.9 Hypotension, unspecified; E86.9 Volume depletion, unspecified; E83.42 Hypomagnesemia; D64.9 Anemia, unspecified
CPT/HCPCS: 36415-UA; 70450-TC; 71045-TC; 76770-TC; 80048-TC; 81001-TC; 82948-90; 83605; 83735-TC; 84100-TC; 84132-TC; 84133-TC; 84300-TC; 84436-TC; 84439-90; 84443-TC; 84479-90; 84484-TC; 85025-TC; 87086-90; 93005; 94640; 96374; J0610; J0696; J1815; J3475; J7030; J7613; J7799